=== PATIENT | female | born 1960 | race Caucasian/White ===

== ENCOUNTER 2024-04-11 13:29 | Outpatient (REF) | payer OTHER, SELFPAY ==
--- NOTE | ~2024-04-11 | MR_ITS ---
EXAMINATION: MR KNEE WITHOUT CONTRAST, RIGHT CLINICAL INFORMATION: Pain. COMPARISON: None available. TECHNIQUE: MRI of the knee without contrast was performed using routine sequences on a high-field scanner. FINDINGS: MENISCI: Medial Meniscus: Intact. Lateral Meniscus: A radial tear is present at the junction of the anterior horn and body of the lateral meniscus, extending to the majority of the meniscal cross-section, sparing a thin band of peripheral fibers. There is partial extrusion of the lateral meniscal body. LIGAMENTS: Cruciate: Intact. Collateral: Intact. EXTENSOR MECHANISM: Enthesopathic spurring is present at the quadriceps tendon insertion on the patella. Minimal quadriceps tendinosis. No tears. ARTICULAR CARTILAGE/BONE: Patellofemoral Compartment: Small marginal osteophytes are present at the patella. Minimal chondral fissuring and surface irregularity at the median ridge and lateral facet of the patella. Trochlear cartilage appears normal. Medial Compartment: Normal. Lateral Compartment: Areas of mild non-uniform partial-thickness cartilage loss are evident at the tibial plateau anteriorly and posteriorly. Additional cartilage loss is present at the posterior non-weightbearing surface of the lateral femoral condyle with full-thickness fissuring and subchondral edema signal. No fractures. JOINT FLUID AND BURSAE: Moderate-sized joint effusion. No Miramontes's cyst. MR/MR knee RT wo con IMPRESSION: 1. High-grade radial tear at the junction of the anterior horn and body of the lateral meniscus. 2. Mild lateral and minimal patellofemoral compartment osteoarthritis. 3. Moderate-sized joint effusion.
== END 2024-04-11 13:30 | disposition home or self-care (01) ==
LOC: HO.MRI 13:29
PROVIDERS: PCP Registered Nurse; Visit Provider Family Medicine Sports Medicine
DX: M25.561 Pain in right knee (principal)
CPT/HCPCS: 73721